=== PATIENT | female | born 1985 | race Caucasian/White ===

== ENCOUNTER → 2018-05-28 | Outpatient (CLI) | payer BC ==
--- NOTE | 2018-05-28 13:53 | XR ---
Abdomen HISTORY: Low back pain Frontal view of the abdomen on 2 images Lung bases are not included on the exam. There is no pathologic calcification. No evident pneumoperit oneum or bowel obstruction. Possible phlebolith in the right hemipelvis. Retained fecal debris presen t within the colon. IMPRESSION: Indeterminate calcification right hemipelvis. Limitations as described. Correlate for fec al stasis.
== END ==
LOC: RADXRMAIN 11:20
PROVIDERS: ATTEND Family Medicine
DX: N28.89 Other specified disorders of kidney and ureter (principal)
CPT/HCPCS: 74018

== ENCOUNTER → 2019-05-26 | Outpatient (CLI) | payer BC ==
--- NOTE | 2019-05-26 15:56 | US ---
EXAMINATION TYPE: US transvaginal DATE OF EXAM: 05/26/2019 COMPARISON: NONE CLINICAL HISTORY: N93.9 ABN UTERINE AND VAGINAL BLEEDING. TECHNIQUE: Transvaginal (TV). Transvaginal sonographic images were medically necessary patient amna ble to well fill bladder. Date of LMP: Patient has been bleeding for 3 months EXAM MEASUREMENTS: Uterus: 7.7 x 3.4 x 2.9 cm Endometrial Stripe: 1.5 cm Right Ovary: Obscured by overlying bowel gas Left Ovary: 2.8 x 1.6 x 1.8 cm 1. Uterus: Retroverted wnl 2. Endometrium: Upper limits of normal 3. Right Ovary: Obscured by overlying bowel gas 4. Left Ovary: wnl 5. Bilateral Adnexa: wnl 6. Posterior cul-de-sac: wnl IMPRESSION: 1. Upper limits of normal size thickness of the endometrium for a premenopausal female measuring 1.5 cm. 2. Obscuration of the right ovary by overlying bowel gas. Physiologic follicular changes are seen in the left ovary.
== END | disposition home or self-care (01) ==
LOC: RADUSWWP 14:57
PROVIDERS: ATTEND Internal Medicine
DX: N93.9 Abnormal uterine and vaginal bleeding, unspecified (principal)
CPT/HCPCS: 76830

== ENCOUNTER → 2024-01-03 | Outpatient (CLI) | payer BC ==
[2024-01-03 13:45] VITALS: BP 115/77; PULSE 75; RESP 16; TEMP 98.2
--- NOTE | 2024-01-03 14:01 | P.SLEEP ---
History of Present Illness DATE: 01/03/2024 CONSULTATION/NEW PATIENT EVALUATION HISTORY OF PRESENT ILLNESS/SLEEP-WAKE EVALUATION: 38-year-old lady had been e valuated in the sleep center for possible obstructive sleep apnea hypopnea syndrome and significant excessive daytime sleepiness. SLEEP SCHEDULE: Usually sleep schedule from 10 PM to 6:30 AM on weekdays and from 10 PM to 7 AM on weekend. FALLING ASLEEP: No problems with falling asleep. DURING SLEEP: Patient has loud snoring and wakes up from sleep to use the restroom at night. No history of hypnogogical hallucinations, sleep paralysis, or cataplexy. DURING THE DAY/WAKE STATE: In the morning patient wake up tired, falling asleep during the day, has episodes of irritability and depression. [place] sleepiness scale is significantly increased to 16. Patient may take 1 nap a day usually at noon time for 1 hour. PAST MEDICAL HISTORY: Depression. PAST SURGICAL HISTORY: Cholecystectomy. MEDICATIONS: Zoloft. SOCIAL HISTORY: Please see below. FAMILY HISTORY: Hypertension, sleep apnea, hyperlipidemia. REVIEW OF SYSTEMS: Loud snoring, sleepiness during the day. No fevers. No double vision. No recent chest pain. No shortness of breath. No abdominal pain. No bleeding episodes. No blood in urine. No seizure episodes. PHYSICAL EXAMINATION: GENERAL: A pleasant patient without any distress. VITAL SIGNS: Please see below, weight 205 pounds, BMI 33.0. HEENT: PERRLA, EOMI. Evaluation of oropharynx showed tongue protrudes midline, low position of soft palate Mallampati 3, wide pillars. NECK: Supple. No JVD. Thyroid is not palpable. 18 inches in circumference. LUNGS: Clear to percussion and to auscultation. Good air exchange. No wheezing or rhonchi. HEART: S1, S2 regular. No murmurs, gallops or rubs. ABDOMEN: Soft and nontender. Bowel sounds are present. No organomegaly appreciated. EXTREMITIES: No clubbing or cyanosis. COMPLIANCE QUALITY PERFORMANCE ANALYST: Awake, alert, and oriented x3. Cranial nerves 2 to 7 intact. There is no fasciculation or atrophy noted. No focal deficits observed. ASSESSMENT: 1. Loud snoring, awakenings from sleep,, small oropharyngeal airspace, wide neck 18 inches in circumference, sleepiness with high [place] Sleepiness Scale. Obstructive sleep apnea hypopnea syndrome. 2. Mild obesity, BMI 33.0. 3. Significant excessive daytime sleepiness with [place] Sleepiness Scale 16 dictate necessity to include narcolepsy and idiopathic hypersomnia and differential diagnosis. 4. History of depression. 5 status post cholecystectomy. PLAN: 1. Home sleep apnea test for evaluation of patient's breathing during sleep. 2. Following plan after reading sleep study. 3. Preferable position during sleep on the side. 4. No driving if patient feels any sleepiness. Patient is aware of civil and criminal liability for unsafe driving. 5. Sleep hygiene with regular sleep time for at least 7.5-8 hours. 6. Watching and losing weight. Thank you very much for referring this patient for consultation. Sincerely, Rl Downey MD, PhD, FAASM. Diplomat of [employer], Sleep Medicine Board by [employer] Professor of [facility] [place] Past Medical History Past Medical History: No Reported History History of Any Multi-Drug Resistant Organisms: None Reported, MRSA Date of last positivie culture/infection: 03/15/21 MDRO Source:: MRSA BREAST Additional Past Surgical History / Comment(s): gall bladder removed Past Anesthesia/Blood Transfusion Reactions: No Reported Reaction Past Psychological History: No Psychological Hx Reported Smoking Status: Vaper Past Alcohol Use History: None Reported Past Drug Use History: None Reported - Past Family History Father Family Medical History: Hyperlipidemia Mother Family Medical History: Hypertension, Sleep Apnea/CPAP/BIPAP Medications and Allergies Home Medications Medication Instructions Recorded Confirmed Type Sertraline [Zoloft] 150 mg PO DAILY 01/03/24 01/03/24 History Physical Exam Vitals: Vital Signs Temp Pulse Resp BP Pulse Ox 01/03/24 13:42 98.2 F 75 16 115/77 98 Intake and Output 01/02/24 01/03/24 01/03/24 22:59 06:59 14:59 Other: Weight 92.986 kg Sleep Note - Sleep Data ESS Total: 16 - Sleep Note Sleep Note: Temperature: 98.2 F Pulse Rate: 75 Respiratory Rate: 16 Blood Pressure: 115/77 SpO2: 98 Height: 5 ft 6 in Weight: 92.986 kg BMI: Neck Circumference: 18
== END ==
LOC: 3 N SLEEP 13:09
PROVIDERS: ATTEND Internal Medicine
DX: G47.33 Obstructive sleep apnea (adult) (pediatric) (principal); E66.9 Obesity, unspecified; F17.290 Nicotine dependence, other tobacco product, uncomplicated; F32.A Depression, unspecified; Z90.49 Acquired absence of other specified parts of digestive tract; Z68.33 Body mass index [BMI] 33.0-33.9, adult
CPT/HCPCS: 99202

== ENCOUNTER → 2024-01-10 | Outpatient (CLI) | payer BC ==
--- NOTE | 2024-01-14 17:48 | P.PCN ---
Description of Procedure: CLINICAL: A home sleep apnea test has been done for confirmation of possible obstructive sleep apnea-hypopnea syndrome. DESCRIPTION OF PROCEDURE: RESULTS: Recording time was 7 hours 36 minutes. Evaluation time was 7 hours 25 minutes. Evaluation time is sufficient for making conclusion about results of the test. Raw data of sleep recording has been reviewed and is adequate. Respiratory channel showed 7 apneas and 7 hypopneas. Apnea-hypopnea index was 1.9 per hour. Pulse rate in the range between minimum 41, maximum 131, average 58 by computer calculation. IMPRESSION: 1. No significant respiratory abnormalities have been documented during the sleep study. 2. Snoring have been documented during the sleep study. 3. Patient presents with symptoms of significant excessive daytime sleepiness with [place] Sleepiness Scale 16 which dictate necessity to include hypersomnia and narcolepsy and differential diagnosis. Please see other impressions from consultation. PLAN: 1. Multiple sleep latency test for objective evaluation symptoms of excessive daytime sleepiness for differential diagnosis of possible idiopathic hypersomnia and narcolepsy. 2. No driving if feeling any sleepiness. 3. Watching weight. 4. Sleep hygiene with regular time in bed for at least 8 hours. Thank you very much for allowing me to participate in the management of your patient. Sincerely, Rl Downey MD, PhD, FAASM Diplomat of [employer] Sleep Medicine Board of [employer] W[employer] Inspector of [facility] [place] cc: Karlo Lea MD
== END ==
LOC: 3 N SLEEP 16:45
PROVIDERS: ATTEND Internal Medicine
DX: G47.33 Obstructive sleep apnea (adult) (pediatric) (principal)